=== PATIENT | male | born 1935 | race Caucasian/White ===

== ENCOUNTER 2017-04-23 21:11 | Emergency (ER) | payer MEDICARE, OTHER ==
[~2017-04-23 21:11] MED LIST: DIGO0.25 PO; DILT180C56 PO; DRON400 PO; FURO1TAB93 PO; METO100T PO; RIVA20 PO
--- NOTE | 2017-04-23 21:19 | PD ---
HPI Chief Complaint: Code Blue Time Seen by Provider: 21:15 Travel History International Travel<30 days: No Contact w/Intl Traveler<30days: No History of Present Illness HPI 81-year-old male here in active cardiac arrest. Per EMS patient was found slumped over in a vehicle outside of a restaurant. Restaurant geographical historian had seen him approximately 45 minutes prior. When fire arrived patient in cardiac arrest with significant amount of vomitus around the face and airway. Patient was asystolic throughout, given multiple rounds of epi, calcium, bicarbonate, Narcan. Blood sugar normal. Intubated successfully per EMS. ACLS en route for approximately 35-45 minutes without return of spontaneous circulation. Remains in cardiac arrest PFS Past Medical History Heart Rhythm Problems: Yes (atrial fibrillation) Cancer: No Cardiovascular Problems: Yes Diminished Hearing: No Endocrine: No Genitourinary: Yes Hypertension: Yes Immune Disorder: No Kidney Stones: Yes Musculoskeletal: No Neurologic: Yes Respiratory: Yes Immunizations Current: Yes Social History Alcohol Use: Yes (moderate) Tobacco Use: No Substance Use: No Allergies-Medications (Allergen,Severity, Reaction): Coded Allergies: Peanut (Verified Allergy, Severe, Swelling, 02/27/14) raw peanuts are bad, cooked are OK. Apple (Verified Allergy, Intermediate, throat swell, 02/27/14) Lamar (Verified Allergy, Intermediate, throat swell, 02/27/14) Swain (Verified Allergy, Intermediate, throat swell, 02/27/14) Uncoded Allergies: fruit (Allergy, Severe, 12/14/12) allergic to the acid in the skin. Reported Meds & Prescriptions Reported Meds & Active Scripts Active Reported Multaq 400 Mg Tab (Dronedarone) 400 Mg Tab 400 Mg PO BIDAC Diltiazem Cd (Diltiazem HCl) 180 Mg Cap 180 Mg PO DAILY Lasix (Furosemide) 40 Mg Tab 40 Mg PO DAILY Metoprolol Tartrate 100 Mg Tab 100 Mg PO BID Xarelto 20 Mg Tab (Rivaroxaban) 20 Mg Tab 20 Mg PO DAILY TAKE WITH DINNER Digoxin 0.25 Mg Tab 0.25 Mg PO DAILY TAKE EVERY AM Review of Systems ROS Limitations: Clinical Condition, Intubated Physical Exam Exam Limitations: Clinical Condition Narrative GENERAL: male appearing older than stated age and active cardiac arrest SKIN: Focused skin assessment warm/dry. HEAD: Normocephalic. EYES: Pupils fixed and dilated ENT: Endotracheal tube in oropharynx. Vomitus around airway, base NECK: Supple CARDIOVASCULAR: Cardiac arrest with active CPR RESPIRATORY: Endotracheal tube in place with coarse breath sounds bilaterally GASTROINTESTINAL: Abdomen soft, non-tender, nondistended. MUSCULOSKELETAL: No obvious deformities. No edema. NEUROLOGICAL: GCS 3 I MDM Medical Decision Making Medical Screen Exam Complete: Yes Emergency Medical Condition: Yes Medical Record Reviewed: Yes Differential Diagnosis 81-year-old male here as a CODE BLUE, approximately 35-40 minute asystolic cardiac resuscitation per EMS. Down for up to 45 minutes prior to that. Differential includes DC, PE, electrolyte abnormality, arrhythmia, hypovolemia Narrative Course Active CPR continued. With CPR good palpable distal pulses. Endotracheal tube was confirmed. CPR was stopped, asystolic without pulses, no cardiac activity on ultrasound. Resuscitative efforts futile time of 2113. Diagnosis Primary Impression: Cardiac arrest Disposition: 20 Condition: Neda Garcia MD Apr 23, 2017 21:18
== END 2017-04-24 | disposition expired ==
LOC: NEPE 21:11 → NEPI 04-24
DX: I46.9 Cardiac arrest, cause unspecified (principal); I48.91 Unspecified atrial fibrillation; I10 Essential (primary) hypertension
CPT/HCPCS: 99285